=== PATIENT | female | born 1945 | race Caucasian/White ===

== ENCOUNTER 2023-12-06 16:33 | Emergency (ER) | payer OTHER, SELFPAY ==
[2023-12-06 16:33] VITALS: BMI 30.7
[2023-12-06 16:39] VITALS: BP 185/88
[2023-12-06 16:55] LABS: % Basophils 1.4 % (0-2); % Eosinophils 4.9 % (0-6); % Immature Granulocytes 0.4 % (0-0.5); % Lymphocytes 23.2 % (20.5-51.1); % Monocytes 10.9 % (1.7-9.3); % Neutrophils 59.2 % (42.2-75.2); Absolute Basophils 0.1 10^3/uL (0-0.2); Absolute Eosinophils 0.3 10^3/uL (0-0.7); Absolute Lymphocytes 1.2 10^3/uL (1.2-3.4); Absolute Monocytes 0.6 10^3/uL (0.1-0.6); Absolute Neutrophils 3.1 10^3/uL (1.4-6.5); Hematocrit 41.2 % (37.0-47.0); Hemoglobin 14.4 g/dL (12.0-16.0); Mean Corpuscular Hgb 30.3 pg (27.0-31.0); Mean Corpuscular Volume 86.7 fL (81.0-99.0); Mean Platelet Volume 9.4 fL (7.4-10.4); Nucleated Red Blood Cells % 0 %; Platelet Count 241 10^3/uL (130-400); Red Blood Cell Count 4.75 10^6/uL (4.20-5.40); Red Cell Dist. Width 12.9 % (11.5-14.5); White Blood Cell Count 5.1 10^3/uL (4.8-10.8)
[2023-12-06 17:02] VITALS: BP 177/82
[2023-12-06 17:04] LABS: INR 0.98; PT 12.8 Sec (11.4-14.6)
[2023-12-06 17:09] LABS: ALT (SGPT) 21 U/L (0-35); AST (SGOT) 26 U/L (14-36); Albumin 4.2 g/dl (3.5-5.0); Alkaline Phosphatase 77 U/L (38-126); Blood Urea Nitrogen 15 mg/dl (7-17); Calcium 9.1 mg/dl (8.4-10.2); Carbon Dioxide 31 mmol/L (22-30); Chloride 105 mmol/L (98-107); Glucose 97 mg/dl (70-99); Potassium 4.2 mmol/L (3.5-5.1); Sodium 139 mmol/L (135-145); Total Bilirubin 0.6 mg/dl (0.2-1.3); Total Protein 7.2 g/dl (6.3-8.2); eGFR > 60.00
--- NOTE | 2023-12-06 17:13 | ED.CVA ---
History of Present Illness
General
Chief Complaint: CVA/TIA Symptoms
Time Seen by Provider: 12/06/23 16:53
Onset of Stroke Symptoms
Onset of symptoms known: Yes
Date of onset of symptoms: 12/06/23
Travel History
Have you had any contact with someone who has COVID-19?: No
Do you have any symptoms of coronavirus? Fever > 100 degrees, chills, cough, shortness of breath, sore throat, loss of taste or smell, muscle aches, or headache?: No
History of Present Illness
History of Present Illness:
78-year-old female with history of CHF presents the emergency department for headache brief onset right facial numbness. Headache developed earlier today, described as pressure. It was not severe and not sudden in onset. At 1 point she noted to
her daughter that she had numbness to the right cheek however this lasted less than 10 minutes before resolving. She states that after taking 1000 mg of Tylenol her headache seems to be improving. Primary concern was that her blood pressure was
noted to exceed 200 systolic in conjunction with a headache and numbness. Blood pressure on arrival has improved. She has been compliant with her 5 mg amlodipine and did not take additional medications today. Denies any speech difficulty, vision
changes, extremity weakness, extremity numbness, or gait instability
Review of Systems
Review of Systems
Allergies reviewed?: Yes
All Other Systems: ROS reviewed and negative except as documented in HPI and ROS
Phy Exam
Physical Exam
Physical Exam:
GEN: Well appearing, NAD, WDWN
HEENT: Oral mucosa moist, no scleral icterus, no nasal congestion
Cardiac: Regular rate
Lung: No respiratory distress, no tachypnea
MSK: No gross deformity or injuries
Skin: Good color, no pallor or jaundice, no rashes
Neuro: AO x3; CN II-XII grossly intact. BUE strength 5/5 in all mcgee, sensation intact and symmetric. BLE strength 5/5 in all mcgee, sensation intact and symmetric
Psych: Calm, cooperative
Course
Orders/Labs/Results
Orders:
Orders
12/06/23 16:39
EKG [Electrocardiogram (*1)] Urgent
Reason for Study: Hypertension, Benign
CT Head W/o Iv Contrast Urgent
Comment:
Reason For Exam: left facial numbness
12/06/23 16:40
EKG- Treatment ONCE
12/06/23 16:45
Complete Blood Count/With Diff Urgent
Comprehensive Metabolic Panel Urgent
Prothrombin Time Urgent
Abnormal Lab Results
12/06/23
16:45
Monocytes % 10.9 H %
(1.7-9.3)
Carbon Dioxide 31 H mmol/L
(22-30)
12/06/23 16:45
12/06/23 16:45
Vital Signs
Initial and Last Documented VS:
Initial Vital Signs
Temp Pulse Resp BP Pulse Ox
98.1 F 68 17 185/88 99
12/06/23 16:39 12/06/23 16:39 12/06/23 16:39 12/06/23 16:39 12/06/23 16:39
Last Documented Vital Signs
Temp Pulse Resp BP Pulse Ox
98.1 F 70 19 163/77 96
12/06/23 16:39 12/06/23 17:19 12/06/23 17:19 12/06/23 17:19 12/06/23 17:19
MDM/Problems Addressed
MDM/Problems Addressed:
70-year-old female presents with headache and transient facial numbness. I suspect this was an atypical headache given the resolution of symptoms after administering Tylenol however cannot completely discount the possibility of a TIA. She is low
risk based on ABCD score for TIA in the setting of short duration of symptoms and lack of speech or motor involvement. She reports admission to emergency symptomatic blood pressure is downtrending. I recommended she start 81 mg aspirin daily and
follow-up with her primary care physician to undergo an outpatient carotid Doppler ultrasound to assess for carotid stenosis given that she does have further TIA/CVA risk factors. Any recurrent symptoms should warrant return to the emergency
department for admission and further neurologic workup
Comment
Comment:
EKG independently interpreted by me shows a normal sinus rhythm at a rate of 62 with occasional ectopy, no ST changes concerning for ischemia, there is a right bundle branch block
*Critical Care Note
Total Time (30-74mins, 75-104mins- exclusive of procedures): Not Applicable
ED Attending Note
-
Portions of this chart may have been created with voice recognition software.� Occasional wrong word or��sound alike� substitutions may have occurred due to the inherent limitations of voice recognition software.
Discharge Plan
Departure
Patient Disposition: Home (Routine Discharge)
Date of Disposition: 12/06/23
Time of Disposition: 17:24
Patient with high blood pressure during this ER visit?: Yes
Discharge Problem:
Headache, Elevated blood pressure reading
Instructions: Headache, Adult
Activity Restrictions/Additional Instructions:
See your primary doctor to recheck your blood pressure within one week
Please consider starting a daily 81mg aspirin until you see your primary doctor for follow up
Any recurrent symptoms should result in repeat ER visit for further workup
Interventions
Interventions:
*Risk Screen - Suicide Last Done: 12/06/23 17:46
*General Assessment Last Done: 12/06/23 17:46
*Neglect/Abuse Screening Last Done: 12/06/23 17:46
ED- Fall Risk Assessment Last Done: 12/06/23 17:03
*ED COVID-19 Vaccine History Last Done: 12/06/23 17:46
*Nursing Disposition Last Done: 12/06/23 17:46
ED- Pulmonary Assessment Last Done: 12/06/23 17:03
ED- Neurological Assessment Last Done: 12/06/23 17:03
ED- Cardiac Assessment Last Done: 12/06/23 17:03
Discharge Date and Time
Discharge Date/Time: 12/06/23 17:48
[2023-12-06 17:15] VITALS: BP 174/90
[2023-12-06 17:19] VITALS: BP 163/77
== END 2023-12-06 17:48 | disposition home or self-care (01) ==
LOC: EMR 16:33
PROVIDERS: Emergency Medicine; EMERGENCY PHYSICIAN Emergency Medicine; FAMILY PHYSICIAN Internal Medicine
DX: R51.9 Headache, unspecified (principal); R03.0 Elevated blood-pressure reading, without diagnosis of hypertension; I11.0 Hypertensive heart disease with heart failure; I50.9 Heart failure, unspecified
CPT/HCPCS: 99284; 70450; 80053; 85025; 85610; 93005

== ENCOUNTER → 2024-01-05 08:32 | Outpatient (REF) | payer OTHER, SELFPAY | LOC: RAD 08:32 | PROVIDERS: ATTENDING PHYSICIAN Nurse Practitioner Family | DX: Z78.0 Asymptomatic menopausal state (principal) | CPT/HCPCS: 77080 ==

== ENCOUNTER → 2024-11-12 07:30 | Outpatient (REF) | payer OTHER, SELFPAY | LOC: RCS 07:30 | PROVIDERS: ATTENDING PHYSICIAN Nurse Practitioner Family | DX: C82.15 Follicular lymphoma grade II, lymph nodes of inguinal region and lower limb (principal); I10 Essential (primary) hypertension; I49.9 Cardiac arrhythmia, unspecified; R06.00 Dyspnea, unspecified | CPT/HCPCS: 93005; 93306 ==